=== PATIENT | female | born 1960 | race Caucasian/White ===

== ENCOUNTER 2020-08-25 08:56 | Outpatient (REF) | payer OTHER, SELFPAY ==
--- NOTE | 2020-08-25 08:59 | MM_ITS ---
EXAMINATION: MM SCREENING DIGITAL BREAST TOMOSYNTHESIS, BILATERAL CLINICAL INFORMATION: Screening. Asymptomatic. The lifetime risk of breast cancer based on the Tyrer-Cuzick Model is 15%. COMPARISON: Mammography: 01/22/2019, 01/09/2018, 12/26/2016 TECHNIQUE: Digital breast tomosynthesis is performed in both the craniocaudal and mediolateral oblique views along with computer-aided detection (CAD). Synthesized 2D images are generated from the tomosynthesis. Additional bilateral MLO views are provided. FINDINGS: There are scattered areas of fibroglandular density (ACR BI-RADS breast composition Category b). There are no significant masses, abnormal calcifications, or other abnormalities. The axilla and skin contours are unremarkable. MM/MM tomosynthesis screening BI IMPRESSION: No mammographic evidence of malignancy. ASSESSMENT: BI-RADS 1: Negative RECOMMENDATION: Routine annual mammography screening. This patient's information was entered into a reminder system with a target due date for their next mammogram.
== END 2020-08-25 08:57 | disposition home or self-care (01) ==
LOC: HO.MAMMO 08:56
PROVIDERS: PCP Family Medicine; Visit Provider Family Medicine
DX: Z12.31 Encounter for screening mammogram for malignant neoplasm of breast (principal)
CPT/HCPCS: 77063; 77067

== ENCOUNTER → 2021-05-02 08:20 | Outpatient (REF) | payer OTHER, SELFPAY | LOC: HO.CARD 08:20 | PROVIDERS: PCP Family Medicine; Visit Provider Internal Medicine | DX: I48.0 Paroxysmal atrial fibrillation (principal); Z79.899 Other long term (current) drug therapy | CPT/HCPCS: 93005 ==

== ENCOUNTER → 2021-05-03 11:09 | Outpatient (REF) | payer OTHER, SELFPAY ==
--- NOTE | 2021-05-03 11:13 | CA_ITS ---
Transthoracic Echocardiogram Patient (Last, First, Middle): Terri Ozuna K Gender: Female Date of : 1960 Age: 60 Procedure Date: 05/03/2021 Procedure Type: Transthoracic Echocardiogram Location: OP Height: 175.26 cm Weight: 108.86 kg BSA: 2.23 m2 Heart Rate: bpm BP: 122 / 80 mmHg Mechanical Development Engineer: ALEYDA Referring MD: Andi Sharpe MD Doper: Jd Treadwell MD Symptoms: I48.0 - Paroxysmal atrial fibrillation Study Quality: Fair ECG Rhythm: Sinus Conclusions: - 1. Normal LV systolic and diastolic function 2. Normal cardiac valvular Doppler 3. No gross pericardial effusion Findings Left Ventricle Normal left ventricular size, thickness, and systolic function. The visually estimated ejection fraction is between 60-65%. Spectral Doppler is indicative of a normal filling pattern. Right Ventricle Normal right ventricular cavity size and systolic function. Atria The left atrium is normal in size. Interatrial shunt cannot be excluded. The right atrium is normal in size. Aortic Valve The aortic valve structure and function is likely normal. There is no aortic valve stenosis. There is no aortic valve regurgitation. Mitral Valve Likely normal mitral valve structure and function. There is trace mitral valve regurgitation. There is no mitral valve stenosis. Pulmonic Valve The pulmonic valve was not well visualized. Tricuspid Valve Likely normal tricuspid valve structure and function. There is trace tricuspid valve regurgitation. The right ventricular systolic pressure is normal. The right ventricular systolic pressure is 32 mmHg. Normal right atrial pressure. There is no evidence of pulmonary hypertension. Great Vessels All visible segments of the aorta are normal in size. The pulmonary artery was not well visualized. Venous The inferior vena cava is normal in size and collapses greater than 50% with inspiration. Pericardium/Pleural There is no evidence of pericardial effusion. Prior Study Comparison No significant change compared to prior study dated: 06/03/2019. Measurements 2D Linear Measurements IVSd: 1.05 0.6-0.9/0.6-1.0 cm LVIDd: 4.55 3.9-5.3/4.2-5.9 cm LVIDd Index: 2.04 2.4-3.2/2.2-3.1 cm/m2 LVIDs: 2.90 2.0-3.6 cm LVPWd: 1.06 0.7-1.1 cm Ao Root: 2.80 2.1-3.5 cm LA Diam: 4.00 2.7-3.8/3.0-4.0 cm LAIDs Index: 1.79 1.5-2.3 cm/m2 LV Mass: 209.26 67-162/88-224 g LV Mass Index: 93.84 43-95/49-115 g/m2 LVOT Diam: 2.20 3.0+(-)1.3 cm 2D Systolic Function EF 4C: 62.80 >55% EF 2C: 53.90 >55% EF BiP: 59.00 >55% Mitral Valve MV Pk E: 0.85 MV PK A: 0.58 MV Decel Time: 112.00 E/A: 1.50 PHT: 33.00 MVA PHT: 6.67 Decel [place]: 7.63 Aortic Valve AoV Pk Daniel: 1.09 AoV Pk Grad: 5.00 LVOT LVOT Pk Daniel: 0.91 LVOT Mn Daniel: 0.55 LVOT VTI: 0.20 LVOT Pk Grad: 3.00 LVOT Mn Grad: 1.00 LVOT Diam: 2.20 LVOT Area: 3.80 Diastolic Function MV Pk E: 0.85 MV Pk A: 0.58 E/A: 1.50 Right Ventricle TAPSE (mm): 2.03 Tricuspid Valve TR Pk Daniel: 2.70 TR Pk Grad: 29.00 RA Press: 3.00 RVSP: 32.00 Great Vessels Aorta Ao Root-2D: 2.80 2.0-3.7 cm Ao Asc: 3.30 2.1-3.4 cm Ao Arch: 2.80 Updated in Other Vendor System with Status of Final Jd Treadwell MD electronically signed on 05/04/2021 4:39:20 PM with status of Final
== END ==
LOC: HO.CARD 11:09
PROVIDERS: Visit Provider Internal Medicine
DX: I48.0 Paroxysmal atrial fibrillation (principal); M79.89 Other specified soft tissue disorders; R06.02 Shortness of breath
CPT/HCPCS: 93306

== ENCOUNTER → 2021-05-05 10:53 | Outpatient (REF) | payer OTHER, SELFPAY ==
--- NOTE | 2021-05-05 10:56 | HM_ITS ---
The patient is a 60-year-old female. REQUESTING PHYSICIAN: Dr. Sharpe. FINDINGS: The patient was hooked up to cardiac event monitor from 05/05/2021 to 06/04/2021, for a total period of 30 days. Only 1 rhythms strip at the beginning was provided, which showed sinus rhythm. There were no other rhythm strips or arrhythmias noted. There were no patient reported events. CONCLUSION: Event monitor remarkable: 1. One strip showing normal sinus rhythm at 75 beats per minute. 2. No other arrhythmias. The patient reported events were noted. Jd Treadwell MD NRS/MODL / [id number]
== END ==
LOC: HO.CARD 10:53
PROVIDERS: Visit Provider Internal Medicine
DX: I48.0 Paroxysmal atrial fibrillation (principal)
CPT/HCPCS: 93270

== ENCOUNTER → 2021-08-11 14:36 | Outpatient (BNVA) | payer OTHER, SELFPAY | PROVIDERS: PCP Family Medicine; Referring Provider Family Medicine; Visit Provider Internal Medicine ==

== ENCOUNTER 2021-09-28 17:53 | Emergency (ER) | payer OTHER, SELFPAY ==
[2021-09-28 19:40] VITALS: BP 151/82; PULSE 69; RESP 18; TEMP 37; O2SAT 97; BMI 33.2
== END 2021-09-29 02:29 | disposition left against medical advice (07) ==
PROVIDERS: Emergency Provider Emergency Medicine; PCP Family Medicine
DX: S09.90XA Unspecified injury of head, initial encounter (principal); S39.92XA Unspecified injury of lower back, initial encounter; W00.0XXA Fall on same level due to ice and snow, initial encounter; Y93.89 Activity, other specified; Y92.410 Unspecified street and highway as the place of occurrence of the external cause; Y99.9 Unspecified external cause status
CPT/HCPCS: 99281; 99282

== ENCOUNTER 2021-11-22 16:00 | Outpatient (REF) | payer OTHER, SELFPAY ==
--- NOTE | ~2021-11-22 | MM_ITS ---
EXAMINATION: MM SCREENING DIGITAL BREAST TOMOSYNTHESIS, BILATERAL CLINICAL INFORMATION: Screening. Asymptomatic. The lifetime risk of breast cancer based on the Tyrer-Cuzick Model is 11%. COMPARISON: Mammography: 08/25/2020, 01/22/2019, 01/09/2018 TECHNIQUE: Digital breast tomosynthesis is performed in both the craniocaudal and mediolateral oblique views along with computer-aided detection (CAD). Synthesized 2D images are generated from the tomosynthesis. FINDINGS: There are scattered areas of fibroglandular density (ACR BI-RADS breast composition Category b). There are no significant masses, abnormal calcifications, or other abnormalities. Parenchymal pattern is similar to prior studies. There is no developing density or architectural abnormality. The axilla and skin contours are unremarkable. No significant changes. MM/MM tomosynthesis screening BI IMPRESSION: No mammographic evidence of malignancy. ASSESSMENT: BI-RADS 1: Negative RECOMMENDATION: Routine annual mammography screening. This patient's information was entered into a reminder system with a target due date for their next mammogram.
== END 2021-11-22 16:01 | disposition home or self-care (01) ==
LOC: HO.MAMMO 16:00
PROVIDERS: Visit Provider Family Medicine
DX: Z12.31 Encounter for screening mammogram for malignant neoplasm of breast (principal)
CPT/HCPCS: 77063; 77067

== ENCOUNTER 2022-05-08 07:44 | Outpatient (REF) | payer OTHER, SELFPAY ==
--- NOTE | ~2022-05-08 | XR_ITS ---
EXAMINATION: XR ANKLE, RIGHT CLINICAL INFORMATION: Pain. COMPARISON: Right ankle 01/29/2020 TECHNIQUE: AP, lateral, and mortise views of the right ankle. FINDINGS: There is moderate lateral and minimal lateral malleolar soft tissue swelling. The ankle mortise and subtalar joints are normal. There is small calcaneal heel enthesophyte. XR/XR ankle RT min 3V IMPRESSION: Small calcaneal heel enthesophyte. No visible acute fracture, dislocation or subluxation seen. There is moderate lateral and mild medial malleolar soft tissue swelling.
== END 2022-05-08 07:45 | disposition home or self-care (01) ==
LOC: HO.HOSX 07:44
PROVIDERS: Visit Provider Physician Assistant
DX: M25.571 Pain in right ankle and joints of right foot (principal)
CPT/HCPCS: 73610

== ENCOUNTER → 2022-10-25 13:25 | Outpatient (BNVA) | payer OTHER, SELFPAY | PROVIDERS: PCP Nurse Practitioner Family; Visit Provider Internal Medicine | DX: I48.0 Paroxysmal atrial fibrillation (principal) | CPT/HCPCS: 93005 ==

== ENCOUNTER 2022-11-28 14:46 | Outpatient (REF) | payer OTHER, SELFPAY ==
--- NOTE | ~2022-11-28 | MM_ITS ---
EXAMINATION: MM SCREENING DIGITAL BREAST TOMOSYNTHESIS, BILATERAL CLINICAL INFORMATION: Screening. Asymptomatic. The lifetime risk of breast cancer based on the Tyrer-Cuzick Model is 9%. COMPARISON: Multiple prior mammography exams, most recent 11/22/2021. TECHNIQUE: Digital breast tomosynthesis is performed in both the craniocaudal and mediolateral oblique views along with computer-aided detection (CAD). Synthesized 2D images are generated from the tomosynthesis. FINDINGS: There are scattered areas of fibroglandular density (ACR BI-RADS breast composition Category b). There is fibronodular parenchymal pattern. No interval architectural abnormality or abnormal calcifications. The bilateral axilla are unremarkable. The left breast similar to prior studies. Right breast has oval nodular asymmetry upper outer right breast approximately 7 cm from nipple. Suspect incompletely compressed glandular tissue and/or summation artifact. Patient will be recalled for additional imaging. MM/MM tomosynthesis screening BI IMPRESSION: Right: -Subtle nodular asymmetry upper outer quadrant, possibly incompletely compressed glandular tissue and/or summation artifact. Left: -No mammographic evidence of malignancy. ASSESSMENT: BI-RADS 0: Incomplete - Need Additional Imaging Evaluation RECOMMENDATION: 1. Additional views right breast (rolled CC x2, spot MLO). 2. Targeted ultrasound if warranted after review of the additional views. 3. Radiology department staff will contact the patient for additional imaging. This patient's information was entered into a reminder system with a target due date for their next mammogram.
== END 2022-11-28 14:47 | disposition home or self-care (01) ==
LOC: HO.MAMMO 14:46
PROVIDERS: PCP Nurse Practitioner Family; Visit Provider Nurse Practitioner Family
DX: Z12.31 Encounter for screening mammogram for malignant neoplasm of breast (principal)
CPT/HCPCS: 77063; 77067

== ENCOUNTER 2022-12-07 08:23 | Outpatient (REF) | payer OTHER, SELFPAY ==
--- NOTE | ~2022-12-07 | MM_ITS ---
EXAMINATION: MM DIAGNOSTIC DIGITAL BREAST TOMOSYNTHESIS, RIGHT CLINICAL INFORMATION: Recall from screening for subtle nodular asymmetry upper outer right breast, possibly incompletely compressed glandular tissue and/or summation artifact. Family history breast cancer, mother. TC score 9%. COMPARISON: Prior mammography exams, most recent 11/28/2022. TECHNIQUE: Digital breast tomosynthesis is performed. 2D images are generated from the tomosynthesis. The following views are obtained: Rolled CC x2, spot MLO. FINDINGS: There are scattered areas of fibroglandular density (ACR BI-RADS breast composition Category b). There is fibronodular parenchymal pattern similar to prior studies. No interval mass or focal nodular asymmetry. No architectural abnormality. Results are discussed with the patient at time of visit. MM/MM tomosynthesis added views R IMPRESSION: -No mammographic evidence of malignancy. -No significant changes from prior studies. ASSESSMENT: BI-RADS 2: Benign RECOMMENDATION: Routine annual mammography screening. This patient's information was entered into a reminder system with a target due date for their next mammogram.
== END 2022-12-07 08:24 | disposition home or self-care (01) ==
LOC: HO.MAMMO 08:23
PROVIDERS: PCP Nurse Practitioner Family; Visit Provider Nurse Practitioner Family
DX: R92.8 Other abnormal and inconclusive findings on diagnostic imaging of breast (principal)
CPT/HCPCS: 77061; 77065

== ENCOUNTER 2023-12-21 10:59 | Outpatient (REF) | payer OTHER, SELFPAY ==
--- NOTE | ~2023-12-21 | MM_ITS ---
EXAMINATION: MM SCREENING DIGITAL BREAST TOMOSYNTHESIS, BILATERAL CLINICAL INFORMATION: Screening. Asymptomatic. COMPARISON: Mammography: This study is compared with prior exams dating back to 2019. TECHNIQUE: Digital breast tomosynthesis is performed in both the craniocaudal and mediolateral oblique views along with computer-aided detection (CAD). Synthesized 2D images are generated from the tomosynthesis. FINDINGS: There are scattered areas of fibroglandular density (ACR BI-RADS breast composition Category b). There are no significant masses, abnormal calcifications, or other abnormalities. Few, bilateral, coarse benign calcifications are present. MM/MM tomosynthesis screening BI IMPRESSION: No mammographic evidence of malignancy. ASSESSMENT: BI-RADS BI-RADS 2 - Benign Findings RECOMMENDATION: Routine annual mammography screening. 1 year F/U This examination should not preclude the clinical evaluation of a suspicious palpable abnormality. This patient's information was entered into a reminder system with a target due date for their next mammogram.
== END 2023-12-21 11:00 | disposition home or self-care (01) ==
LOC: HO.MAMMO 10:59
PROVIDERS: PCP Nurse Practitioner Family; Visit Provider Nurse Practitioner Family
DX: Z12.31 Encounter for screening mammogram for malignant neoplasm of breast (principal)
CPT/HCPCS: 77063; 77067

== ENCOUNTER → 2023-12-21 11:15 | Outpatient (BNV) | payer OTHER, SELFPAY | PROVIDERS: PCP Nurse Practitioner Family; Visit Provider Radiology Diagnostic Radiology | DX: Z12.31 Encounter for screening mammogram for malignant neoplasm of breast (principal) | CPT/HCPCS: 77063; 77067 ==

== ENCOUNTER 2024-11-19 12:32 | Outpatient (AMB) | payer OTHER, SELFPAY ==
[2024-11-19 12:34] VITALS: BP 124/68; PULSE 62; BMI 31.3
--- NOTE | 2024-11-19 12:34 | A.OFFVIS_ITS ---
Vital Signs 11/19/24 12:34 Height 5 ft 9 in Weight 211 lb 10.3 oz BMI 31.3 BP 124/68 Blood Pressure Location Lt brachial Position Sitting Pulse 62 Pulse Source Monitor Intake Visit Reasons: 2 yrs followup w/ekg dx: paf Allergies Penicillins Allergy (Unknown, Verified 09/28/21 19:40) swelling/nausea/rash Sulfa (Sulfonamide Antibiotics) Allergy (Unknown, Verified 09/28/21 19:40) fever/nausea/rash sulfamethoxazole [From Bactrim] Allergy (Verified 05/08/22 10:13) sick trimethoprim [From Bactrim] Allergy (Verified 05/08/22 10:13) sick Medication List - Last Reconciled 11/19/24 by Andi Sharpe MD ascorbate calcium (vitamin C) 500 mg PO DAILY aspirin 81 mg PO DAILY atorvastatin 20 mg PO BEDTIME ociixkwuz-ifujkemr-dxulkud ala 50-200-25 mg (Biktarvy) 1 tab PO DAILY bupropion HCl XL 300 mg PO DAILY calcium carbonate (Calcium 500) 500 mg PO DAILY metoprolol succinate ER 50 mg PO DAILY bcrhoger-wjn-tizh-FA-vit K-lut 8 mg iron-400 mcg-50 mcg (Centrum Silver Women) 1 tab PO DAILY omeprazole magnesium (Prilosec OTC) 20 mg PO DAILY sumatriptan succinate 50 mg PO vitamin E 200 units PO DAILY HPI Comments Details: Terri is here for follow-up regarding atrial fibrillation. In 2014, she had an episode of atrial fibrillation with rapid rate. Since then, she has been on beta-blockers. One recurrence in the last 10 years or so but fairly brief. Otherwise generally doing well. No cardiac symptoms. Since last seen, no new concerns. 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 Review of Systems Const Denies weakness ENT Denies dizziness Card Denies chest pain, Denies chest pain with activity, Denies syncope, Denies rapid heart rate, Denies pedal edema, Denies edema, Denies leg edema, Denies lightheadedness, Denies palpitations, Denies dyspnea, Denies dyspnea on exertion and Denies orthopnea Resp Denies cough, Denies dyspnea and Denies dyspnea on exertion GI Denies hematochezia and Denies change in stool character Musc Denies abnormal gait, Denies muscle cramps, Denies muscle weakness, Denies numbness, Denies radiating pain into limb and Denies tingling Neuro Denies abnormal gait, Denies dizziness, Denies syncope, Denies numbness, Denies tingling and Denies weakness Endo Denies palpitations Physical Exam Vital Signs: Last Vital Signs Pulse 62 11/19/24 12:34 BP 124/68 11/19/24 12:34 BMI result Body Mass Index 31.3 Const General: comfortable and no acute distress Orientation/consciousness: patient oriented x3 HEENT Other: Unremarkable Head: Yes normal to inspection Neck Neck: Yes normal visual inspection Chest Chest palpation & inspection: normal inspection of the chest Resp Auscultation: clear to auscultation bilaterally Cardio Palpation: normal PMI Heart sounds: S1 normal heart sound present, S2 normal heart sound present, no gallops, no murmurs and no rubs GI Palpation (GI): Soft to palpation Back/Spine/Pelvis Other: unremarkable Skin General skin exam: no rashes or lesions noted Neuro General: patient oriented x3 Extrem General: Yes normal to inspection Psych Mental Status: mental status grossly normal Office Procedures EKG Details: EKG with underlying sinus rhythm at 62/Min; no significant ST-T changes and otherwise unremarkable[place] [address]-[id number], Complete Assessment & Plan Assessment & Plan (1) PAF (paroxysmal atrial fibrillation): Code(s): I48.0 - Paroxysmal atrial fibrillation Category: Medical Plan: Overall, doing well. Atrial fibrillation episodes have been extremely rare and also brief. Continue beta-blockers. No need for anticoagulation. Cardiac testing- Echocardiogram with normal LVEF, 60-65%, no significant valvular pathology and otherwise unremarkable. 30 day event monitor shows sinus rhythm only. Coding Level of Care Code Est Pt Level 3 (03535) Diagnoses PAF (paroxysmal atrial fibrillation) I48.0 CPT Codes EKG - CPT: 13525-Kgfrqxkxawrdvtntq, Complete ([id number])
--- OUTSIDE RECORDS SUMMARY | 2024-11-19 15:18 | XMS_ITS | Clinical Summary ---
Author Organization [employer] Address [address] [place] [address] [address] [place] [address] Care Team Providers Care Dumpling Machine Operator Name Role Phone Unavailable Primary Care Provider Unavailabl e Social History Tobacco Use Types Packs/Day Years Used Date Smoking Tobacco: Never Assessed Comments Unknown Sex and Gender Information Value Date Recorded Sex Assigned at Female 07/24/2022 10:19 AM EDT Legal Sex Female 10:19 AM EDT Gender Identity Female 07/24/2022 10:19 AM EDT Sexual Orientation Don't know 07/24/2022 10 :19 AM EDT Plan of Treatment Health Maintenance Due Date Last Done Comments CT Colonography 1960 Colonoscopy 1960 Colorectal Cancer Screening 1960 Depression Screening 1960 FIT DNA/Cologuard 1960 FIT 1960 FOBT 1960 SDOH Screening 1960 Sigmoidoscopy 1960 Alcohol/Substance Use Screening 1970 Tobacco Screening 1970 Hepatitis C Screening 1976 Zoster Vaccines (1 of 2) 2008 Pneumococcal Vaccine: 50+ Years (3 of 3 - PCV20 or PCV21) 06/11/2019 06/11/2014, 05/29/2013, 12/11/2007, Additional history exists Mammogram 11/23/2023 11/22/2021 COVID-19 Vaccine ( season) 2024 07/25/2023, 06/01/2022, 06/27/2021, Additional history exists Influenza Vaccine (#1) 2024 3, 06/24/2022, 06/01/2022, Additional history exists DTaP/Tdap/Td Vaccines (3 - Td or Tdap) 07/13/2027 07/13/2017, 07/01/2012, 12/11/2007 RSV Patients and Patients Aged 60 years or older (1 - 1-dose 75+ series) 2033 Hepatitis A Vaccines Aged Out 06/28/2012, 07/07/2010, 11/18/2009, Additional history exists No longer eligible based on patient's age to complete this topic Hepatitis B Vaccines Completed 06/28/2012, 07/07/2010, 11/18/2009, Additional history exists Meningococcal Vaccine Aged Out 06/21/2017, 017 No longer eligible based on patient's age to complete this topic HIB Vaccines Aged Out No longer eligi ble based on patient's age to complete this topic HPV Vaccines Aged Out No longer eligi ble based on patient's age to complete this topic IPV Vaccines Aged Out No longer eligi ble based on patient's age to complete this topic RSV under 20 months Aged Out No longe r eligible based on patient's age to complete this topic Rotavirus Vaccines Aged Out No longer eligible based on patient's age to complete this topic Procedures Procedure Name Priority Date/Time Associated Diagnosis Comments MAMMOGRAM GENERIC Routine 11/22/2021 4:2 2 PM EST from Last 3 Months or Most Recently Relevant to Health Maintenance Results * Mammography Report 1 (11/22/2021 4:22 PM EST) Anatomical Region Laterality Modality Breast Bilateral Mammography 11/22/2021 4:22 PM EST Narrative 11/24/2021 11:23 AM EST Refer to the Notes tab for result details [facility] Procedure: Mammography Report 1 Procedure Note Provider, Roosevelt, - 12/17/2022 Refer to the Notes tab for result details [facility] Procedure: Mammography Report 1 Rajinder Stringer MD IMG BI PROCEDURES Final Result from Last 3 Months or Most Recently Relevant to Health Maintenance Insurance [facility] NAVIGATE
== END 2024-11-19 13:03 | disposition home or self-care (01) ==
PROVIDERS: PCP Physician Assistant; Visit Provider Internal Medicine
DX: I48.0 Paroxysmal atrial fibrillation (principal)
CPT/HCPCS: 93010; 99213

== ENCOUNTER → 2024-11-19 12:32 | Outpatient (BNVA) | payer OTHER, SELFPAY | PROVIDERS: PCP Physician Assistant; Visit Provider Internal Medicine | DX: I48.0 Paroxysmal atrial fibrillation (principal); Z79.899 Other long term (current) drug therapy | CPT/HCPCS: 93005 ==

== ENCOUNTER 2025-01-30 07:41 | Outpatient (AMB) | payer OTHER, SELFPAY ==
--- NOTE | 2025-01-30 07:44 | A.OFFVIS_ITS ---
Vital Signs 01/30/25 07:56 Height 5 ft 9 in Intake Visit Reasons: [employer]- RT shoulder injury DOI 11/07/24 Intake Note: Terri is a 64 year old right hand dominant female who presents today for a an evaluation of right shoulder status post work injury, DOI 11/07/24. Patient reports that it was icy - she went to go out to a truck and she slipped and caught herself on the truck. After the injury she was seen at an urgent care for her wrist. She had no fracture of the wrist. About a week after the injury the right shoulder became painful and it has worsened over time. Her pain is felt all of the time, worsened with activity. She also has numbness and tingling that is felt at the top of the shoulder and on the right side of the neck. Allergies Penicillins Allergy (Unknown, Verified 09/28/21 19:40) swelling/nausea/rash Sulfa (Sulfonamide Antibiotics) Allergy (Unknown, Verified 09/28/21 19:40) fever/nausea/rash sulfamethoxazole [From Bactrim] Allergy (Verified 05/08/22 10:13) sick trimethoprim [From Bactrim] Allergy (Verified 05/08/22 10:13) sick Medication List - Last Reconciled 01/30/25 by Linda Spring PA-C ascorbate calcium (vitamin C) 500 mg PO DAILY aspirin 81 mg PO DAILY atorvastatin 20 mg PO BEDTIME apaqqpxgn-ntmylwkg-geodngs ala 50-200-25 mg (Biktarvy) 1 tab PO DAILY bupropion HCl XL 300 mg PO DAILY calcium carbonate (Calcium 500) 500 mg PO DAILY metoprolol succinate ER 50 mg PO DAILY zgsvckxd-bjc-jbxb-FA-vit K-lut 8 mg iron-400 mcg-50 mcg (Centrum Silver Women) 1 tab PO DAILY omeprazole magnesium (Prilosec OTC) 20 mg PO DAILY sumatriptan succinate 50 mg PO vitamin E 200 units PO DAILY HPI HPI [employer]- RT shoulder injury DOI 11/07/24: Details: 64-year-old female presents to the office today for right shoulder pain. She states this occurred while at work she was approaching a truck when she slipped on ice on 11/07/2024. Immediately she felt pain in the wrist and shortly after her right shoulder pain developed. She has pain that is constant with activities such as overhead reaching and lifting. She has discomfort at night. This is affecting her ability to perform daily activities. 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 She has full range of motion in all planes. 5/5 with rotator cuff strength. She does have tenderness over the proximal biceps tendon. Negative Falcon negative [place]'s. Neurovascularly intact. Office Procedures AMB Joint Injection/Aspiration Joint Injection/Aspiration Primary Site: right shoulder Prep: site was prepped using aseptic technique, ethochloride spray was applied and injection warnings given Injected: 80 mg of, DepoMedrol, with 8 mL of, 1% plain lidocaine and in the subcromial space Approach Used: posterolateral Procedure: The patient tolerated the procedure well and there was some relief with the local anesthesia Coding 31951 - Glenohumeral/Tronchanteric Bursa/Intraarticular Procedure code (CPT) selection complete Results Reviewed Results Reviewed: X-rays of the right shoulder obtained from an outside facility show mild AC joint arthritis. Assessment & Plan Assessment & Plan (1) Bicipital tendinitis, right shoulder: Code(s): M75.21 - Bicipital tendinitis, right shoulder Category: Medical Plan: We discussed options today which include conservative management with physical therapy and steroid injections. She did consent to an injection in the right shoulder today which she tolerated well. A physical therapy order was also placed to work on range of motion/rotator cuff and periscapular stabilization. She will continue to increase activities as tolerated. If symptoms persist or worsen over the next 6 weeks she will contact our office to discuss further recommendations otherwise follow up as needed. Orders: Orders XR shoulder RT min 2V Today M25.511 - Pain in right shoulder PT Evaluation and Treatment Today M75.21 - Bicipital tendinitis, right shoulder Coding Level of Care Code Est Pt Level 3 (07290) Complex EM visit Add On G2211 Diagnoses Bicipital tendinitis, right shoulder M75.21 CPT Codes Coding - Joint 7: 67916 - Glenohumeral/Tronchanteric Bursa/Intraarticular ([id number])
--- OUTSIDE RECORDS SUMMARY | 2025-01-30 07:44 | XMS_ITS | Clinical Summary ---
Author Organization [employer] Address [address] [place] [address] [address] [place] [address] Care Team Providers Care News Camera Operator Name Role Phone Unavailable Primary Care [...] Most Recently Relevant to Health Maintenance Insurance [facility] NAVIGATE
== END 2025-01-30 08:40 | disposition home or self-care (01) ==
LOC: HO.HOS 07:42
PROVIDERS: PCP Physician Assistant; Visit Provider Physician Assistant
DX: M75.21 Bicipital tendinitis, right shoulder (principal); Z04.2 Encounter for examination and observation following work accident
CPT/HCPCS: 20610; 99213

== ENCOUNTER → 2025-01-30 07:43 | Outpatient (BNV) | payer OTHER, SELFPAY | PROVIDERS: Visit Provider Radiology Diagnostic Radiology | DX: M25.511 Pain in right shoulder (principal) | CPT/HCPCS: 73030 ==

== ENCOUNTER 2025-01-30 10:10 | Outpatient (REF) | payer OTHER, SELFPAY ==
--- NOTE | ~2025-01-30 | XR_ITS ---
EXAMINATION: XR SHOULDER, RIGHT CLINICAL INFORMATION: M25.511 - Pain in right shoulder COMPARISON: None available. TECHNIQUE: Single cross lateral view of the right shoulder. FINDINGS: Limited view demonstrated no acute cortical disruption within the humeral head neck or proximal diaphysis. There appears to be normal alignment at the glenohumeral joint. No gross lytic or blastic lesions. XR/XR shoulder RT min 2V IMPRESSION: Limited exam. Electronically signed by: Mateus Aviles MD 01/30/2025 08:16 AM EDT
--- OUTSIDE RECORDS SUMMARY | 2025-02-03 11:11 | XMS_ITS | Clinical Summary ---
Author Organization [employer] Address [address] [place] [address] [address] [place] [address] Care Team Providers Care Welding Inspector Name Role Phone Unavailable Primary Care Provider [...] Most Recently Relevant to Health Maintenance Insurance [facility] NAVIGATE
== END 2025-01-30 10:11 | disposition home or self-care (01) ==
LOC: HO.HOSX 10:10
PROVIDERS: Visit Provider Physician Assistant
DX: M25.511 Pain in right shoulder (principal); M75.21 Bicipital tendinitis, right shoulder
CPT/HCPCS: 20610; 73030; 99212; J1010; J2003

== ENCOUNTER 2025-02-06 14:50 | Outpatient (REF) | payer OTHER, SELFPAY ==
--- OUTSIDE RECORDS SUMMARY | 2025-02-06 14:53 | XMS_ITS | Clinical Summary ---
Author Organization [employer] Address [address] [place] [address] [address] [place] [address] Care Team Providers Care Endocrinology Specialist Name Role Phone Unavailable Primary Care Provider [...] 1-dose 75+ series) 2033 Hepatitis A Vaccines Completed 06/28/2012, 07/07/2010, 11/18/2009, Additional history exists Hepatitis B Vaccines Completed 06/28/2012, 07/07/2010, 11/18/2009, [...] on patient's age to complete this topic Meningococcal B Vaccine Aged Out No l onger eligible based on patient's age to complete [...] Recently Relevant to Health Maintenance Insurance [facility] NAVIGATE
== END 2025-02-06 14:51 | disposition home or self-care (01) ==
LOC: HO.MAMMO 14:50
PROVIDERS: PCP Physician Assistant; Visit Provider Physician Assistant
DX: Z12.31 Encounter for screening mammogram for malignant neoplasm of breast (principal)
CPT/HCPCS: 77063; 77067

== ENCOUNTER → 2025-02-06 15:15 | Outpatient (BNV) | payer OTHER, SELFPAY | PROVIDERS: PCP Physician Assistant; Visit Provider Internal Medicine | DX: Z12.31 Encounter for screening mammogram for malignant neoplasm of breast (principal) | CPT/HCPCS: 77063; 77067 ==